=== PATIENT | male | born 1965 | race Caucasian/White ===

== ENCOUNTER → 2016-12-05 | Outpatient (CLI) | payer BC ==
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
== END | disposition home or self-care (01) ==
LOC: SLEEP 16:16
PROVIDERS: ATTEND Internal Medicine
DX: G47.33 Obstructive sleep apnea (adult) (pediatric) (principal); E66.9 Obesity, unspecified; I10 Essential (primary) hypertension; E11.9 Type 2 diabetes mellitus without complications; E78.5 Hyperlipidemia, unspecified; E77.9 Disorder of glycoprotein metabolism, unspecified; M54.2 Cervicalgia; Z79.84 Long term (current) use of oral hypoglycemic drugs; Z79.82 Long term (current) use of aspirin; Z79.899 Other long term (current) drug therapy

== ENCOUNTER → 2018-10-22 | Outpatient (CLI) | payer OTHER ==
--- NOTE | 2018-10-22 17:34 | PN ---
PROGRESS NOTE DATE OF SERVICE: 10/22/2018 53-year-old gentleman who has been followed in the Sleep Center for treatment of obstructive sleep apnea-hypopnea syndrome. The patient continued to use his CPAP equipment every night for the whole night without any problems related to mask fitting, pressure or humidification. Recently sometimes, he started to develop snoring. [place] Sleepiness Scale is normal 4. I checked his CPAP unit. CPAP pressure is 11 cm of water. Apnea-hypopnea index reading 2.7, which is normal. Leak is only 4 L/minute, which is normal. Usage is 100% of the nights more than 4 hours. Average usage 9.2 hours. MEDICATIONS: Metoprolol, Lotrel, metformin, glipizide, Lipitor, Flonase, Claritin, Cymbalta, vitamin D, Percocet, ibuprofen, aspirin, stool softener. PHYSICAL EXAM: Patient in no distress. BP 150/90 in the right arm, heart rate 88, respiration 16, height 17.5 inches, weight 259 pounds. Body mass index 35.9. Patient increased his weight around 10 pounds since previous visit. Temperature 98.3, oxygen saturation at room air 96%. Oropharynx extremely low position of soft palate. Abdomen slightly obese. Neck Supple, no JVD. Thyroid is not palpable. LUNGS Clear to percussion and to auscultation. Good air exchange. No wheezing or rhonchi. HEART S1, S2 regular. No murmurs, gallops, or rubs. ABDOMEN Soft and nontender. Bowel sounds are present. No organomegaly appreciated. EXTREMITIES No clubbing or cyanosis. MACHINE TESTER Awake, alert, and oriented X3. Cranial nerves 2 to 7 intact. There is no fasciculation or atrophy. noted. No focal deficits observed. IMPRESSION: 1. Severe obstructive sleep apnea-hypopnea syndrome with apnea-hypopnea index 31.7 on control with CPAP at 11 cm of water, but patient developed occasional snoring. The patient demonstrated 100% compliance with treatment benefitting from treatment. 2. Obesity, BMI 35.9. 3. Hypertension. 4. Diabetes mellitus. 5. Hyperlipidemia. 6. History of neck pain. PLAN: 1. I will increase pressure to 13 cm of water. 2. Losing weight. 3. Sleep hygiene with regular time in bed for at least 8 hours. 4. No driving if feeling sleepiness. 5. Prescription for all necessary CPAP supplies including mask, tube, filters. Thank you very much for allowing me to participate in management of your patient. Sincerely, Carloz Aquino MD, PhD, FAASM Diplomat of [employer] [employer] [place] [employer] Bacteriology Teacher of [facility] [place] MMODL / BENN: [id number] /
== END ==
LOC: SLEEP 16:38
PROVIDERS: ATTEND Internal Medicine
DX: G47.33 Obstructive sleep apnea (adult) (pediatric) (principal); E66.9 Obesity, unspecified; I10 Essential (primary) hypertension; E11.9 Type 2 diabetes mellitus without complications; E78.5 Hyperlipidemia, unspecified; M54.2 Cervicalgia; Z99.89 Dependence on other enabling machines and devices; Z79.899 Other long term (current) drug therapy; Z79.82 Long term (current) use of aspirin; Z79.84 Long term (current) use of oral hypoglycemic drugs; Z79.1 Long term (current) use of non-steroidal anti-inflammatories (NSAID)

== ENCOUNTER → 2020-11-01 | Outpatient (CLI) | payer BC ==
--- NOTE | 2020-11-02 00:31 | SFUN ---
SLEEP CENTER FOLLOW UP NOTE DATE OF SERVICE: 11/01/2020 55-year-old gentleman who has been followed in Sleep Center for treatment of obstructive sleep apnea-hypopnea syndrome. I have not seen patient for 2 years. He continued to use his equipment every night for the whole night. No snoring with the machine. [place] Sleepiness Scale today is 4. I checked CPAP unit. CPAP pressure is 15 cm of water. Usage is 30/30 nights for more than 4 hours with average usage 9.5 hours per night. Leak is 12 L/minute which is acceptable range. Apnea-hypopnea index of 0.5, which is absolutely perfect. MEDICATIONS: Trulicity 1.5-0.5 once a week, amlodipine, benazepril 10/20 mg 1 daily, metformin 500 mg twice a day, metoprolol 100 mg once a day, Atorvastatin 20 mg once a day. Duloxetine 60 mg once a day, 10 mg once a day, oxycodone, acetaminophen 20 tablets per month. Aspirin 81 mg once a day. Flonase 50 mcg twice a day. PHYSICAL EXAM: Patient in no distress, BP 163/95, HR 84, RR 15, height 5 feet 11 inches, weight 246, BMI 33.8 in 19.3, oxygen saturation at room air 96%. Oropharynx extremely low position of soft palate. Mallampati 4. NECK: Supple, no JVD. Thyroid is not palpable. LUNGS: Clear to percussion and to auscultation. Good air exchange. No wheezing or rhonchi. HEART: S1, S2 regular. No murmurs, gallops, or rubs. ABDOMEN: Soft and nontender. Bowel sounds are present. No organomegaly appreciated. EXTREMITIES: No clubbing or cyanosis. LOGISTICAL ENGINEER: Awake, alert, and oriented X3. Cranial nerves 2 to 7 intact. There is no fasciculation or atrophy. noted. No focal deficits observed. IMPRESSION: 1. Obstructive sleep apnea-hypopnea syndrome. Patient demonstrated good compliance with treatment benefitting from treatment. 2. Hypertension. 3. Diabetes mellitus. 4. Hyperlipidemia. 5. History of neck pain. PLAN: 1. Patient will continue to use PAP equipment every night for the whole night. 2. Sleep hygiene with regular time in bed for at least 7-1/2 to 8 hours. 3. Precautions related to driving. No driving if feeling sleepiness. 4. I will maintain all necessary prescription for PAP supplies including mask, tube, filters. 5. Watching weight. 6. No driving if feeling sleepiness. 7. Follow-up visit in 6 months or earlier if patient has any problems. Thank you very much for allowing me to participate in management of this patient. Sincerely, Carloz Aquino MD, PhD, FAASM Diplomat of [employer] Manufacturing Project Engineer of [facility] [place] MMODL / IJN: [id number] /
== END | disposition home or self-care (01) ==
LOC: SLEEP 13:35
PROVIDERS: ATTEND Internal Medicine
DX: G47.33 Obstructive sleep apnea (adult) (pediatric) (principal); I10 Essential (primary) hypertension; E11.9 Type 2 diabetes mellitus without complications; E78.5 Hyperlipidemia, unspecified; Z87.898 Personal history of other specified conditions; Z99.89 Dependence on other enabling machines and devices; Z79.84 Long term (current) use of oral hypoglycemic drugs; Z79.82 Long term (current) use of aspirin; Z79.891 Long term (current) use of opiate analgesic; Z79.51 Long term (current) use of inhaled steroids; Z79.899 Other long term (current) drug therapy

== ENCOUNTER 2021-01-19 21:48 | Inpatient (IN) | payer BC ==
--- NOTE | 2021-01-19 22:30 | ED ---
Arrhythmia/Palpitations HPI - General Chief Complaint: Arrhythmia/Palpitations Stated Complaint: Chest Pain Time Seen by Provider: 01/19/21 22:28 Source: patient Mode of arrival: wheelchair Limitations: no limitations - Related Data Allergies Allergy/AdvReac Type Severity Reaction Status Date / Time No Known Allergies Allergy Verified 01/19/21 21:52 Review of Systems ROS Statement: Those systems with pertinent positive or pertinent negative responses have been documented in the HPI. ROS Other: All systems not noted in ROS Statement are negative. Past Medical History Past Medical History: Diabetes Mellitus, Hyperlipidemia, Hypertension History of Any Multi-Drug Resistant Organisms: None Reported Past Surgical History: No Surgical Hx Reported Smoking Status: Never smoker Past Alcohol Use History: None Reported Past Drug Use History: None Reported General Exam Limitations: no limitations Course Vital Signs 01/19/21 01/19/21 21:49 22:14 Temperature 97.6 F Pulse Rate 94 137 H Pulse Rate [ 126 H Spar Finisher ] Respiratory 18 16 Rate Blood Pressure 133/71 143/109 O2 Sat by Pulse 99 99 Oximetry EKG Findings - EKG Comments: EKG Findings:: EKG shows A. fib with RVR 136 QRS 86 QTC 487 Disposition Referrals: Andrew Mayo DO [Primary Care Provider] - 1-2 days
[2021-01-19 22:37] LABS: Basophils # (A) 0.1 k/uL (0-0.2); Basophils % (A) 1 %; Eosinophils # (A) 0.3 k/uL (0-0.7); Eosinophils % (A) 4 %; HCT 43.4 % (39.0-53.0); HGB 14.7 gm/dL (13.0-17.5); Lymphocytes # (A) 2.8 k/uL (1.0-4.8); Lymphocytes % (A) 31 %; MCH 28.9 pg (25.0-35.0); MCHC 33.8 g/dL (31.0-37.0); MCV 85.5 fL (80.0-100.0); Mean Platelet Volume 7.2; Monocytes # (A) 0.6 k/uL (0-1.0); Monocytes % (A) 7 %; Neutrophils # (A) 5.1 k/uL (1.3-7.7); Neutrophils % (A) 57 %; Platelet Count 196 k/uL (150-450); RBC 5.07 m/uL (4.30-5.90); RDW 13.4 % (11.5-15.5); WBC 9.1 k/uL (3.8-10.6)
[2021-01-19 22:46] LABS: Partial Thromboplastin Time 23.6 sec (22.0-30.0); Prothrombin Time 10.6 sec (9.0-12.0)
[2021-01-19] MEDS ORDERED: DILTIAZEM DRIP BOLUS FROM BAG 1 MG SOLN IV ONE (22:55)
[2021-01-19] MEDS ORDERED: DILTIAZEM 125 MG in SODIUM CHLORIDE 0.9% 100 ML IV SCH (23:00)
[2021-01-19 23:23] LABS: ALT 30 U/L (4-49); AST 35 U/L (17-59); African American GFR (CKD) >90 (>60 ml/min/1.73 sqM); Albumin 4.6 g/dL (3.5-5.0); Alkaline Phosphatase 96 U/L (38-126); Anion Gap 11 mmol/L; Blood Urea Nitrogen 10 mg/dL (9-20); Calcium 9.3 mg/dL (8.4-10.2); Carbon Dioxide 28 mmol/L (22-30); Chloride 99 mmol/L (98-107); Glucose 150 mg/dL (74-99); Magnesium 2.2 mg/dL (1.6-2.3); Non-African American GFR(CKD) >90 (>60 ml/min/1.73 sqM); Potassium 3.8 mmol/L (3.5-5.1); Sodium 138 mmol/L (137-145); Total Bilirubin 0.5 mg/dL (0.2-1.3); Total Protein 7.3 g/dL (6.3-8.2)
[2021-01-20] MEDS ORDERED: HEPARIN SODIUM,PORCINE 5,000 UNIT/ML 1 ML VIAL IV ONE (00:43)
[2021-01-20] MEDS ORDERED: DILTIAZEM DRIP BOLUS FROM BAG 1 MG SOLN IV ONE (00:43)
[2021-01-20] MEDS ORDERED: NITROGLYCERIN SL TABS 0.4 MG TAB SUBLINGUAL PRN (00:43)
[2021-01-20] MEDS ORDERED: HEPARIN SODIUM,PORCINE 5,000 UNIT/ML 1 ML VIAL IV PRN (00:43)
[2021-01-20] MEDS ORDERED: ASPIRIN 81 MG PO STA (00:43)
[2021-01-20] MEDS ORDERED: HEPARIN SOD,PORK IN 0.45% NACL 25,000 UNIT in 0.45% NACL 1 250ML.BAG IV SCH (00:45)
[2021-01-20] MEDS ORDERED: SODIUM CHLORIDE 0.9% 1,000 ML IV SCH (00:45)
[2021-01-20 03:50] LABS: T4, Free (Free Thyroxine) 1.06 ng/dL (0.78-2.19)
[2021-01-20 06:29] LABS: Glucose,Whole Blood 150 mg/dL (75-99)
[2021-01-20 07:30] LABS: Mean Platelet Volume 6.9; Platelet Count 290 k/uL (150-450)
[2021-01-20] MEDS ORDERED: METOPROLOL SUCCINATE (ER) 100 MG TAB.ER.24H PO SCH ×2 (08:55→12:00)
[2021-01-20] MEDS ORDERED: amLODIPine 10 MG TAB PO SCH (09:00)
[2021-01-20] MEDS ORDERED: lisinopriL 20 MG TAB PO SCH (09:00)
[2021-01-20] MEDS ORDERED: METOPROLOL SUCCINATE (ER) 50 MG TAB.ER.24H PO SCH (09:00)
[2021-01-20] MEDS ORDERED: METOPROLOL TARTRATE 50 MG TAB PO SCH (09:00)
[2021-01-20 10:59] VITALS: TEMP 98.3
[2021-01-20 11:51] LABS: Glucose,Whole Blood 201 mg/dL (75-99)
[2021-01-20] MEDS ORDERED: DILTIAZEM CD 120 MG CAP.ER.24H PO SCH (12:00)
[2021-01-20] MEDS ORDERED: APIXABAN 5 MG TAB PO SCH (12:00)
[2021-01-20] MEDS ORDERED: oxyCODONE-APAP 7.5-325MG 1 EACH TAB PO PRN (13:17)
[2021-01-20 13:40] VITALS: BP 131/83; PULSE 77; RESP 16
--- NOTE | 2021-01-20 13:40 | P.CRDCN ---
History of Present Illness Consult date: 01/20/21 History of present illness: HISTORY OF PRESENT ILLNESS: This is a 55-year-old male with a past medical history significant for diabetes mellitus, hypertension, hyperlipidemia, and family history of coronary artery disease. Patient follows in the office with Dr. Kelly. We have been asked to see the patient in consultation for atrial fibrillation. Patient examined at the bedside. Patient states yesterday he was walking around the store with his kids when he began to feel very dizzy and sweaty. Patient presented to the emergency room for further evaluation. He reports feeling palpitations in the emergency room. EKG was completed revealing atrophic ablation with RVR. The patient was started on a IV Cardizem drip. He has since converted to sinus mechanism this morning. He denies chest pain or pressure. He denies shortness of breath. EKG reveals atrial fibrillation with RVR Laboratory data: WBC 9.1. Hemoglobin 14.7. Platelet count 196. Sodium 138. Potassium 3.8. BUN 10. Creatinine 0.65. Troponin negative 2. TSH 6.9. Free T4 1.06. Current home cardiac medications include metoprolol succinate 100 mg daily, Lipitor 20mg daily, Lotrel 10-40mg daily REVIEW OF SYSTEMS: At the time of my exam: CONSTITUTIONAL: Denies fever or chills. HEENT: Denies blurred vision, vision changes, or eye pain. Denies hemoptysis CARDIOVASCULAR: Denies chest pain. Denies orthopnea. Denies PND. Denies pal pitations RESPIRATORY: Denies shortness of breath. GASTROINTESTINAL: Denies abdominal pain. Denies nausea or vomiting. HEMATOLOGIC: Denies bleeding disorders. GENITOURINARY: Denies any blood in urine. SKIN: Denies pruitis. Denies rash. PHYSICAL EXAM: VITAL SIGNS: Reviewed. GENERAL: Well-developed in no acute distress. HEENT: Head is normocephalic. Pupils are equal, round. Sclerae anicteric. Mucous membranes of the mouth are moist. Neck supple. No JVD or thyromegaly LUNGS: Respirations even and unlabored. Lungs essentially clear to auscultation bilaterally. HEART: Regular rate and rhythm. S1 and S2 heard. ABDOMEN: Soft. Nondistended. Nontender. EXTREMITIES: Normal range of motion. No clubbing or cyanosis. Peripheral pulses intact. No lower extremity edema NEUROLOGIC: Awake and alert. Oriented x 3. ASSESSMENT: New onset atrial fibrillation with RVR, since converted to sinus mechanism Hypertension Hyperlipidemia Diabetes mellitus Family history of coronary artery disease Abnormal TSH with normal free T4 PLAN: Obtain 2-D echo to assess cardiac structure and function Discontinue IV Cardizem Continue metoprolol 100 mg daily Begin Cardizem CD 120 mg daily. Discontinue Norvasc Continue lisinopril Discontinue IV heparin. Begin Eliquis 5 mg twice a day Further recommendations pending patient's course Nurse practitioner note has been reviewed by physician. Signing provider agrees with the documented findings, assessment, and plan of care. Past Medical History Past Medical History: Diabetes Mellitus, Hyperlipidemia, Hypertension Additional Past Medical History / Comment(s): chronic neck and back pain History of Any Multi-Drug Resistant Organisms: None Reported Past Surgical History: No Surgical Hx Reported Past Anesthesia/Blood Transfusion Reactions: No Reported Reaction Past Psychological History: No Psychological Hx Reported Smoking Status: Never smoker Past Alcohol Use History: None Reported Past Drug Use History: None Reported - Past Family History Father Family Medical History: Diabetes Mellitus, Hyperlipidemia, Hypertension Mother Family Medical History: No Reported History Medications and Allergies Home Medications Medication Instructions Recorded Confirmed Type Apixaban [Eliquis] 5 mg PO BID #60 tab 01/20/21 Rx Atorvastatin Calcium [Lipitor] 20 mg PO HS 01/20/21 01/20/21 History Cholecalciferol (Vitamin D3) 125 mcg PO HS 01/20/21 01/20/21 History [Vitamin D3 (5000 Iu)] DULoxetine HCL [Cymbalta] 60 mg PO HS 01/20/21 01/20/21 History Diltiazem Cd [Cardizem CD] 120 mg PO DAILY #90 cap.er.24h 01/20/21 Rx Dulaglutide [Trulicity] 1.5 mg SQ SA 01/20/21 01/20/21 History Fluticasone Nasal [place] [Flonase 2 spr EA NOSTRIL DAILY 01/20/21 01/20/21 History Nasal [place]] Metoprolol Succinate [Toprol XL] 100 mg PO DAILY@1200 01/20/21 01/20/21 History lisinopriL 40 mg PO DAILY #90 tab 01/20/21 Rx metFORMIN HCL [Glucophage] 1,000 mg PO BID 01/20/21 01/20/21 History oxyCODONE-APAP 7.5-325MG [Percocet 1 tab PO DAILY PRN 01/20/21 01/20/21 History 7.5-325 mg] Allergies Allergy/AdvReac Type Severity Reaction Status Date / Time No Known Allergies Allergy Verified 01/20/21 07:41 Physical Exam Vitals: Vital Signs Temp Pulse Pulse Resp BP BP Pulse Ox 01/20/21 08:00 98.3 F 72 18 127/64 97 01/20/21 07:27 95 01/20/21 03:00 97.8 F 73 18 135/91 96 01/20/21 02:52 120 H 16 113/97 95 01/20/21 02:01 121 H 16 102/89 97 01/19/21 22:14 137 H 126 H 16 143/109 99 01/19/21 21:49 97.6 F 94 18 133/71 99 Intake and Output 01/19/21 01/20/21 01/20/21 22:59 06:59 14:59 Intake Total 84.061 Balance 84.061 Intake: Intake, IV Titration 84.061 Amount Heparin Sod,Pork in 0.45% 84.061 NaCl 25,000 unit In 0.45 % NaCl 1 250ml.bag @ 8. 952 UNITS/KG/HR 9.948 mls /hr IV .Q24H [facility] Rx#: [id number] Other: Weight 111.13 kg 108.5 kg Results 01/20/21 07:10 01/19/21 23:00 Cardiac Enzymes 01/19/21 01/19/21 01/20/21 Range/Units 22:29 23:00 01:13 AST 35 (17-59) U/L Troponin I <0.012 <0.012 (0.000-0.034) ng/mL 01/20/21 Range/Units 07:10 AST (17-59) U/L Troponin I <0.012 (0.000-0.034) ng/mL Coagulation 01/19/21 01/20/21 01/20/21 Range/Units 22:29 01:13 07:10 PT 10.6 (9.0-12.0) sec APTT 23.6 23.7 34.3 H (22.0-30.0) sec CBC 01/19/21 01/20/21 Range/Units 22:29 07:10 WBC 9.1 (3.8-10.6) k/uL RBC 5.07 (4.30-5.90) m/uL Hgb 14.7 (13.0-17.5) gm/dL Hct 43.4 (39.0-53.0) % Plt Count 196 290 (150-450) k/uL Comprehensive Metabolic Panel 01/19/21 Range/Units 23:00 Sodium 138 (137-145) mmol/L Potassium 3.8 (3.5-5.1) mmol/L Chloride 99 (98-107) mmol/L Carbon Dioxide 28 (22-30) mmol/L BUN 10 (9-20) mg/dL Creatinine 0.65 L (0.66-1.25) mg/dL Glucose 150 H (74-99) mg/dL Calcium 9.3 (8.4-10.2) mg/dL AST 35 (17-59) U/L ALT 30 (4-49) U/L Alkaline Phosphatase 96 (38-126) U/L Total Protein 7.3 (6.3-8.2) g/dL Albumin 4.6 (3.5-5.0) g/dL Current Medications Generic Name Dose Route Start Last Admin Trade Name Freq PRN Reason Stop Dose Admin Apixaban 5 mg 01/20/21 12:00 01/20/21 12:55 Apixaban 5 Mg Tab PO 5 mg BID [facility]ORGE Administration Atorvastatin Calcium 20 mg 01/20/21 21:00 Atorvastatin 20 Mg Tab PO HS [facility]ORGE Cholecalciferol 125 mcg 01/20/21 21:00 Cholecalciferol 25 Mcg (1000 Iu) Tablet PO HS GEORGE Diltiazem HCl 120 mg 01/20/21 12:00 01/20/21 12:55 Diltiazem Cd 120 Mg Cap.Er.24h PO 120 mg DAILY [facility]OR[facility] Administration Duloxetine HCl 60 mg 01/20/21 21:00 Duloxetine Hcl 60 Mg Capsule.Dr PO HS GEORGE Sodium Chloride 1,000 mls @ 100 mls/hr 01/20/21 00:45 01/20/21 01:53 Saline 0.9% IV Not Given .Q10H [facility] Lisinopril 40 mg 01/20/21 09:00 01/20/21 09:36 Lisinopril 20 Mg Tab PO 40 mg DAILY [facility] Administration Metformin HCl 1,000 mg 01/20/21 21:00 Metformin 500 Mg Tab PO BID [facility] Metoprolol Succinate 100 mg 01/20/21 12:00 01/20/21 12:14 Metoprolol Succinate (Er) 100 Mg Tab.Er.24h PO Not Given DAILY@1200 [facility] Nitroglycerin 0.4 mg 01/20/21 00:43 Nitroglycerin Sl Tabs 0.4 Mg Tab SUBLINGUAL Q5M PRN Chest Pain Oxycodone/Acetaminophen 1 each 01/20/21 13:17 Oxycodone-Apap 7.5-325mg 1 Each Tab PO DAILY PRN Pain Intake and Output 01/19/21 01/20/21 01/20/21 22:59 06:59 14:59 Intake Total 84.061 Balance 84.061 Intake: Intake, IV Titration 84.061 Amount Heparin Sod,Pork in 0.45% 84.061 NaCl 25,000 unit In 0.45 % NaCl 1 250ml.bag @ 8. 952 UNITS/KG/HR 9.948 mls /hr IV .Q24H [facility] Rx#: [id number] Other: Weight 111.13 kg 108.5 kg 01/20/21 07:10 01/19/21 23:00
[2021-01-20] MEDS ORDERED: DULoxetine HCL 60 MG CAPSULE.DR PO SCH (21:00)
[2021-01-20] MEDS ORDERED: ATORVASTATIN 20 MG TAB PO SCH (21:00)
[2021-01-20] MEDS ORDERED: metFORMIN 500 MG TAB PO SCH (21:00)
[2021-01-20] MEDS ORDERED: CHOLECALCIFEROL 25 MCG (1000 IU) TABLET PO SCH (21:00)
--- NOTE | 2021-01-20 21:32 | P.HPIM ---
History of Present Illness H&P Date: 01/20/21 Chief Complaint: Heart fluttering History of presenting complaint: This is a pleasant 55 year old patient of Dr. Mayo. Chronic stable medical conditions include diabetes, hypertension, hyperlipidemia, chronic neck and back pain. Patient presented with heart fluttering since yesterday. Some associated dizziness lightheadedness shortness of breath. Found to be in A. fib with rapid ventricular rate. Patient is placed on IV heparin and IV Cardizem in the ER. Later today patient reverted back to sinus rhythm. Patient has chronic neck and back pain. Patient does take Cymbalta with chronic pain and anxiety. Review of systems: GEN.: None EYES: None HEENT: None NECK: None RESPIRATORY: As above CARDIOVASCULAR: [As above GASTROINTESTINAL: None GENITOURINARY: None MUSCULOSKELETAL: None LYMPHATICS: None HEMATOLOGICAL: None PSYCHIATRY: Anxiety NEUROLOGICAL: None Past medical history to include: Diabetes, hypertension, hyperlipidemia, chronic neck and back pain, anxiety Social history: . Does not smoke or drink alcohol. 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 EYES: Pupils equal. Conjunctiva normal. HEENT: External appearance of nose and ears normal, oral cavity grossly normal. NECK: JVD not raised; masses not palpable. HEART: First and second heart sounds are normal; no edema. LUNGS: Respiratory rate normal; clear to auscultation. ABDOMEN: Soft, nontender, liver spleen not palpable, no masses palpable. PSYCH: Alert and oriented x3; mood and affect normal. NEUROLOGICAL: Cranial nerves grossly intact; no facial asymmetry, power and sensation grossly intact. LYMPHATICS: No lymph nodes palpable in the axilla and neck INVESTIGATIONS, reviewed in the clinical context: WBC 10.1 hemoglobin 14.7 platelets 196 potassium 3.8 creatinine 0.65 Troponin I 2 both negative TSH 6.9 and free T4 1 0.06 Coronavirus [PCR]-not detected EKG tracing personally reviewed by me-atrial fibrillation rate of 136 Assessment and plan: -New onset of paroxysmal atrial fibrillation with rapid ventricular rate. Was put on IV Cardizem and IV heparin the ER. Converted to sinus rhythm this morning. -Diabetes mellitus type 2. Continue with Glucophage chronicity. Follow Accu- Cheks -Essential hypertension on beta bhupinder and lisinopril now Cardizem CD -Hypercholesterolemia, on Lipitor -Chronic back and neck pain from arthralgia. On Cymbalta and Percocet -Anxiety not otherwise specified on Cymbalta Patient is placed in telemetry. Cardiology he was consulted. Care was discussed with the patient Past Medical History Past Medical History: Diabetes Mellitus, Hyperlipidemia, Hypertension Additional Past Medical History / Comment(s): chronic neck and back pain History of Any Multi-Drug Resistant Organisms: None Reported Past Surgical History: No Surgical Hx Reported Past Anesthesia/Blood Transfusion Reactions: No Reported Reaction Past Psychological History: No Psychological Hx Reported Smoking Status: Never smoker Past Alcohol Use History: None Reported Past Drug Use History: None Reported - Past Family History Father Family Medical History: Diabetes Mellitus, Hyperlipidemia, Hypertension Mother Family Medical History: No Reported History Medications and Allergies Home Medications Medication Instructions Recorded Confirmed Type Apixaban [Eliquis] 5 mg PO BID #60 tab 01/20/21 Rx Atorvastatin Calcium [Lipitor] 20 mg PO HS 01/20/21 01/20/21 History Cholecalciferol (Vitamin D3) 125 mcg PO HS 01/20/21 01/20/21 History [Vitamin D3 (5000 Iu)] DULoxetine HCL [Cymbalta] 60 mg PO HS 01/20/21 01/20/21 History Diltiazem Cd [Cardizem CD] 120 mg PO DAILY #90 cap.er.24h 01/20/21 Rx Dulaglutide [Trulicity] 1.5 mg SQ SA 01/20/21 01/20/21 History Fluticasone Nasal [place] [Flonase 2 spr EA NOSTRIL DAILY 01/20/21 01/20/21 History Nasal [place]] Metoprolol Succinate [Toprol XL] 100 mg PO DAILY@1200 01/20/21 01/20/21 History lisinopriL 40 mg PO DAILY #90 tab 01/20/21 Rx metFORMIN HCL [Glucophage] 1,000 mg PO BID 01/20/21 01/20/21 History oxyCODONE-APAP 7.5-325MG [Percocet 1 tab PO DAILY PRN 01/20/21 01/20/21 History 7.5-325 mg] Allergies Allergy/AdvReac Type Severity Reaction Status Date / Time No Known Allergies Allergy Verified 01/20/21 07:41 Physical Exam Vitals: Vital Signs Temp Pulse Pulse Resp BP BP Pulse Ox 01/20/21 14:00 77 01/20/21 12:00 77 16 131/83 94 L 01/20/21 08:00 98.3 F 72 18 127/64 97 01/20/21 07:27 95 01/20/21 03:00 97.8 F 73 18 135/91 96 01/20/21 02:52 120 H 16 113/97 95 01/20/21 02:01 121 H 16 102/89 97 01/19/21 22:14 137 H 126 H 16 143/109 99 01/19/21 21:49 97.6 F 94 18 133/71 99 Intake and Output 01/20/21 01/20/21 01/20/21 06:59 14:59 22:59 Intake Total 564.061 Balance 564.061 Intake: Intake, IV Titration 84.061 Amount Heparin Sod,Pork in 0.45% 84.061 NaCl 25,000 unit In 0.45 % NaCl 1 250ml.bag @ 8. 952 UNITS/KG/HR 9.948 mls /hr IV .Q24H [facility] Rx#: [id number] Oral 480 Other: # Voids 2 Weight 108.5 kg Results CBC & Chem 7: 01/20/21 07:10 01/19/21 23:00 Labs: Abnormal Lab Results - Last 24 Hours (Table) 01/19/21 01/20/21 01/20/21 Range/Units 23:00 06:24 07:10 APTT 34.3 H (22.0-30.0) sec Creatinine 0.65 L (0.66-1.25) mg/dL Glucose 150 H (74-99) mg/dL POC Glucose (mg/dL) 150 H (75-99) mg/dL TSH 6.900 H (0.465-4.680) mIU/L 01/20/21 Range/Units 11:50 APTT (22.0-30.0) sec Creatinine (0.66-1.25) mg/dL Glucose (74-99) mg/dL POC Glucose (mg/dL) 201 H (75-99) mg/dL TSH (0.465-4.680) mIU/L Thrombosis Risk Factor Assmnt - Choose All That Apply Any of the Below Risk Factors Present?: Yes Each Factor Represents 1 point: Age 41-60 years, Obesity (BMI >25) Other Risk Factors: No Other congenital or acquired thrombophilia - If yes, enter type in comment: No Thrombosis Risk Factor Assessment Total Risk Factor Score: 2 Thrombosis Risk Factor Assessment Level: Low Risk
--- NOTE | 2021-01-20 21:35 | P.DS ---
Providers Date of admission: 01/20/21 00:44 Expected date of discharge: 01/20/21 Attending physician: Baldemar Anderson Consults: 01/20/21 00:44 Consult Physician Urgent Consulting Provider: Caio Mccord Consult Reason/Comments: afib Do you want consulting provider notified?: Yes Primary care physician: Andrew [facility] Course: Chief Complaint: Heart fluttering History of presenting complaint: This is a pleasant 55 year old patient of Dr. Mayo. Chronic stable medical conditions include diabetes, hypertension, hyperlipidemia, chronic neck and back pain. Patient presented with heart fluttering since yesterday. Some associated dizziness lightheadedness shortness of breath. Found to be in A. fib with rapid ventricular rate. Patient is placed on IV heparin and IV Cardizem in the ER. Later today patient reverted back to sinus rhythm. Patient has chronic neck and back pain. Patient does take Cymbalta with chronic pain and anxiety. Patient is put on IV heparin and IV Cardizem. Reverted to sinus rhythm. Today-patient placed on eliquis, Cardizem CD. Already on Toprol-XL. Care was discussed with the patient. Cleared by cardiology Consultation: Dr. ROSALVA Fernandez from cardiology Past medical history to include: Diabetes, hypertension, hyperlipidemia, chronic neck and back pain, anxiety Social history: . Does not smoke or drink alcohol. 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 EYES: Pupils equal. Conjunctiva normal. HEENT: External appearance of nose and ears normal, oral cavity grossly normal. NECK: JVD not raised; masses not palpable. HEART: First and second heart sounds are normal; no edema. LUNGS: Respiratory rate normal; clear to auscultation. ABDOMEN: Soft, nontender, liver spleen not palpable, no masses palpable. PSYCH: Alert and oriented x3; mood and affect normal. INVESTIGATIONS, reviewed in the clinical context: WBC 10.1 hemoglobin 14.7 platelets 196 potassium 3.8 creatinine 0.65 Troponin I 2 both negative TSH 6.9 and free T4 1 0.06 Coronavirus [PCR]-not detected EKG tracing personally reviewed by me-atrial fibrillation rate of 136 Assessment and plan: -New onset of paroxysmal atrial fibrillation with rapid ventricular rate. Was put on IV Cardizem and IV heparin the ER. Converted to sinus rhythm this morning. Now on Cardizem CD and Toprol-XL. Eliquis -Diabetes mellitus type 2. Continue with Glucophage chronicity. Follow Accu-Cheks -Essential hypertension on beta bhupinder and lisinopril now Cardizem CD -Hypercholesterolemia, on Lipitor -Chronic back and neck pain from arthralgia. On Cymbalta and Percocet -Anxiety not otherwise specified on Cymbalta Disposition: Home Plan - Discharge Summary Discharge Rx Participant: No New Discharge Prescriptions: New Apixaban [Eliquis] 5 mg PO BID #60 tab lisinopriL 40 mg PO DAILY #90 tab Diltiazem Cd [Cardizem CD] 120 mg PO DAILY #90 cap.er.24h Continue Dulaglutide [Trulicity] 1.5 mg SQ SA Cholecalciferol (Vitamin D3) [Vitamin D3 (5000 Iu)] 125 mcg PO HS Atorvastatin Calcium [Lipitor] 20 mg PO HS metFORMIN HCL [Glucophage] 1,000 mg PO BID Metoprolol Succinate [Toprol XL] 100 mg PO DAILY@1200 Fluticasone Nasal [place] [Flonase Nasal [place]] 2 spr EA NOSTRIL DAILY DULoxetine HCL [Cymbalta] 60 mg PO HS oxyCODONE-APAP 7.5-325MG [Percocet 7.5-325 mg] 1 tab PO DAILY PRN PRN Reason: Pain Discontinued amLODIPine BESYLATE/BENAZEPRIL [Lotrel 10-40 MG] 1 cap PO DAILY Aspirin EC [Ecotrin Low Dose] 81 mg PO HS Loratadine 10 mg PO HS Discharge Medication List Apixaban [Eliquis] 5 mg PO BID #60 tab 01/20/21 [Rx] Atorvastatin Calcium [Lipitor] 20 mg PO HS 01/20/21 [History] Cholecalciferol (Vitamin D3) [Vitamin D3 (5000 Iu)] 125 mcg PO HS 01/20/21 [History] DULoxetine HCL [Cymbalta] 60 mg PO HS 01/20/21 [History] Diltiazem Cd [Cardizem CD] 120 mg PO DAILY #90 cap.er.24h 01/20/21 [Rx] Dulaglutide [Trulicity] 1.5 mg SQ SA 01/20/21 [History] Fluticasone Nasal [place] [Flonase Nasal [place]] 2 spr EA NOSTRIL DAILY 01/20/21 [History] Metoprolol Succinate [Toprol XL] 100 mg PO DAILY@1200 01/20/21 [History] lisinopriL 40 mg PO DAILY #90 tab 01/20/21 [Rx] metFORMIN HCL [Glucophage] 1,000 mg PO BID 01/20/21 [History] oxyCODONE-APAP 7.5-325MG [Percocet 7.5-325 mg] 1 tab PO DAILY PRN 01/20/21 [History] Follow up Appointment(s)/Referral(s): cardiology, [Other] - 1 Week (Please make a follow-up with your long winder tender.) Andrew Mayo DO [Primary Care Provider] - 1-2 days (Please call office to make a follow-up appointment) Discharge Disposition: HOME SELF-CARE
--- NOTE | 2021-01-21 08:34 | ECHOF ---
Referral Reason:new onset afib, lv function MEASUREMENTS -------- HEIGHT: 182.9 cm WEIGHT: 108.4 kg BP: RVIDd: 2.6 cm (< 3.3) IVSd: 1.0 cm (0.6 - 1.1) LVIDd: 4.2 cm (3.9 - 5.3) LVPWd: 1.4 cm (0.6 - 1.1) IVSs: 1.5 cm LVIDs: 3.2 cm LVPWs: 1.7 cm LAESV Index (A-L): 32.98 ml/m Ao Diam: 3.0 cm (2.0 - 3.7) AV Cusp: 2.0 cm (1.5 - 2.6) MV EXCURSION: 19.436 mm (> 18.000) MV EF SLOPE: 67 mm/s (70 - 150) EPSS: 0.5 cm MV E David: 0.60 m/s MV DecT: 219 ms MV A David: 0.83 m/s MV E/A Ratio: 0.72 RAP: 5.00 mmHg RVSP: 19.13 mmHg FINDINGS -------- Sinus rhythm. This was a technically good study. LV size, wall thickness and systolic function are normal, with an EF greater than 55%. The left quin tricular size is normal. The right ventricle is normal in size. LA is midly dilated 29-33ml/m2. The right atrial size is normal. The aortic valve is trileaflet, and appears structurally normal. No aortic stenosis or regurgitation. Mild mitral regurgitation is present. Mild tricuspid regurgitation present. Right ventricular systolic pressure is normal at < 35 mmHg. Trace/mild (physiologic) pulmonic regurgitation. The aortic root size is normal. Echo free space indicative of a pericardial fat pad. CONCLUSIONS -------- 1. LV size, wall thickness and systolic function are normal, with an EF greater than 55%. 2. The left ventricular size is normal. 3. The right ventricle is normal in size. 4. LA is midly dilated 29-33ml/m2. 5. The right atrial size is normal. 6. The aortic valve is trileaflet, and appears structurally normal. No aortic stenosis or regurgitati on. 7. Mild mitral regurgitation is present. 8. Mild tricuspid regurgitation present. 9. Trace/mild (physiologic) pulmonic regurgitation. 10. The aortic root size is normal. 11. Echo free space indicative of a pericardial fat pad. TITLE PROCESSOR: Ambar Puente RDCS
[2021-01-21] MEDS ORDERED: ASPIRIN 325 MG TAB PO SCH (09:00)
[2021-01-21] MEDS ORDERED: ASPIRIN 81 MG PO SCH (09:00)
== END 2021-01-20 17:48 | disposition home or self-care (01) | DRG 310 ==
LOC: EC 21:48 → 3SCARD 01-20 00:44
PROVIDERS: ADMIT Hospitalist; ATTEND Hospitalist
DX: I48.0 Paroxysmal atrial fibrillation (principal); Z79.01 Long term (current) use of anticoagulants; E11.9 Type 2 diabetes mellitus without complications; E78.00 Pure hypercholesterolemia, unspecified; F41.9 Anxiety disorder, unspecified; G89.29 Other chronic pain; I10 Essential (primary) hypertension; Z79.84 Long term (current) use of oral hypoglycemic drugs; Z79.899 Other long term (current) drug therapy; Z82.49 Family history of ischemic heart disease and other diseases of the circulatory system; Z83.3 Family history of diabetes mellitus; Z20.822 Contact with and (suspected) exposure to COVID-19; E78.5 Hyperlipidemia, unspecified
CPT/HCPCS: 36415; 80053; 83735; 84439; 84443; 84484; 85025; 85049; 85610; 85730; 87635; 93005; 93306; 94760; 96374; 96375; 96376; 99285

== ENCOUNTER → 2021-05-17 | Outpatient (CLI) | payer BC ==
--- NOTE | 2021-05-18 08:55 | SFUN ---
SLEEP CENTER FOLLOW UP NOTE DATE OF SERVICE: 05/17/2021. 56-year-old gentleman has been followed in Sleep Center for treatment of obstructive sleep apnea-hypopnea syndrome. Patient continued to use CPAP equipment every night for the whole night. He does not have any complaints from the mask fitting, pressure and humidification. Recently the patient had episode of atrial fibrillation which started in the evening hours, but it was not during the sleep time. In several hours, atrial fibrillation was converted to normal sinus rhythm. [place] Sleepiness Scale today is 5. I checked patient's CPAP unit, pressure is 13 cm of water. Usage is 30/30 nights for more than 4 hours with average usage is 10.4 hours per night. Leak is 5 L/minute, which is totally normal. Apnea-hypopnea index is only 1.1, which is perfect. MEDICATIONS: Metformin 500 mg twice a day. Duloxetine 60 mg once a day, amlodipine 10 mg once a day. Lisinopril 40 mg once a day. Eliquis 5 mg once a day. Metoprolol 100 mg once a day. Fluticasone spray to the nose. PHYSICAL EXAMINATION: GENERAL: Patient in no distress. VITAL SIGNS: BP 162/89, HR 69, RR 15, height 5 feet 11 inches, weight 241, body mass index 33.6, temperature 96.2, oxygen saturation at room air 95%. HEENT: PERRLA, EOMI. Oropharynx extremely low position of soft palate. Mallampati 4. NECK: Supple, no JVD. Thyroid is not palpable. LUNGS: Clear to percussion and to auscultation. Good air exchange. No wheezing or rhonchi. HEART: S1, S2 regular. No murmurs, gallops, or rubs. ABDOMEN: Obese. Soft and nontender. Bowel sounds are present. No organomegaly appreciated. EXTREMITIES: No clubbing or cyanosis. CUSTOMER RETENTION REPRESENTATIVE: Awake, alert, and oriented X3. Cranial nerves 2 to 7 intact. There is no fasciculation or atrophy. noted. No focal deficits observed. IMPRESSION: 1. Obstructive sleep apnea-hypopnea syndrome. Patient demonstrated 100% compliance with treatment benefitting from treatment. 2. Recent episodes of atrial fibrillation. Converted to normal sinus rhythm. 3. Hypertension. 4. Diabetes mellitus. 5. Hyperlipidemia. 6. History of neck pain. PLAN: 1. Patient will continue to use PAP equipment every night for the whole night. 2. Sleep hygiene with regular time in bed for at least 7-1/2 to 8 hours. 3. Precautions related to driving. No driving if feeling sleepiness. 4. I will maintain all necessary prescription for PAP supplies including mask, tube, filters. 5. Watching weight. 6. Follow-up visit in 6 months or earlier if patient has any problems. Time spent with patient in documentation 30 minutes. Thank you very much for allowing me to participate in management of your patient. Sincerely, Carloz Aquino MD, PhD, FAASM Diplomat of [place] [employer] Sleep Medicine Board of [place] [employer] Salesperson Meats of [facility] [place] MMODL / IJN: [id number] /
== END ==
LOC: SLEEP 16:33
PROVIDERS: ATTEND Internal Medicine
DX: G47.33 Obstructive sleep apnea (adult) (pediatric) (principal); I48.91 Unspecified atrial fibrillation; I10 Essential (primary) hypertension; E11.9 Type 2 diabetes mellitus without complications; E78.5 Hyperlipidemia, unspecified; Z87.39 Personal history of other diseases of the musculoskeletal system and connective tissue; Z79.01 Long term (current) use of anticoagulants; Z79.84 Long term (current) use of oral hypoglycemic drugs; Z79.899 Other long term (current) drug therapy

== ENCOUNTER → 2021-11-15 | Outpatient (CLI) | payer BC ==
--- NOTE | 2021-11-15 23:22 | SFUN ---
SLEEP CENTER FOLLOW UP NOTE DATE OF SERVICE: 11/15/2021 This 56-year-old gentleman has been followed in Sleep Center for treatment of obstructive sleep apnea-hypopnea syndrome. Patient continues to use his CPAP equipment every night for the whole night and is getting his CPAP supplies on time. [place] Sleepiness Scale today is 4, which is normal. I checked his CPAP unit. Pressure is 13 cm of water. Usage is 30/30 nights for more than 4 hours. Average usage is 10.2 hours per night. Leak is 10 L/minute, which is in normal range. Apnea-hypopnea index is 1.2, which is perfect. MEDICATIONS: 1. Metformin 500 mg 2 tablets twice a day. 2. Jardiance 25 mg once a day. 3. Pioglitazone mg once a day. 4. Eliquis 5 mg twice a day. 5. Lisinopril 40 mg once a day. 6. Amlodipine 10 mg once a day. 7. Metoprolol 100 mg once a day. 8. Atorvastatin 20 mg once a day. 9. Duloxetine 60 mg once a day. 10.Fluticasone 1-2 sprays a day. 11.Famotidine 20 mg once a day. PHYSICAL EXAMINATION: GENERAL: Pleasant patient in no distress. VITAL SIGNS: BP 140/80, HR 63, RR 15, height 5 feet 11-1/2 inches, weight 243.2 pounds, body mass index 33.4, temperature 97.1, oxygen saturation at room air 96%. HEENT: PERRLA, EOMI, evaluation of oropharynx showed tongue protrudes midline. Extremely low position of soft palate; Mallampati IV. NECK: Supple, no JVD. Thyroid is not palpable. LUNGS: Clear to percussion and to auscultation. Good air exchange. No wheezing or rhonchi. HEART: S1, S2 regular. No murmurs, gallops, or rubs. ABDOMEN: Slightly obese. EXTREMITIES: No clubbing or cyanosis. DETECTIVE CHIEF: Awake, alert, and oriented X3. Cranial nerves 2 to 7 intact. There is no fasciculation or atrophy. noted. No focal deficits observed. IMPRESSION: 1. Obstructive sleep apnea-hypopnea syndrome. The patient demonstrated great compliance with treatment. Normal aspiration on CPAP. 2. History of episodes of atrial fibrillation. No recent episodes since I saw patient last time, about 6 months ago. 3. Hypertension. 4. Diabetes mellitus. 5. Hyperlipidemia. 6. History of neck pain. PLAN: 1. Patient will continue to use PAP equipment every night for the whole night. 2. Sleep hygiene with regular time in bed for at least 7-1/2 to 8 hours. 3. Precautions related to driving. No driving if feeling sleepiness. 4. I will maintain all necessary prescription for PAP supplies including mask, tube, filters. 5. Watching weight. 6. Follow-up visit in 6 months or earlier if patient has any problems. Thank you very much for allowing me to participate in the management of your patient. Sincerely, Carloz Aquino MD, PhD, FAASM Diplomat of [place] [employer] Sleep Medicine Board of [place] [employer] Granulator Tender of [facility] [place] MMMONI / DARWIN: [id number] /
== END ==
LOC: SLEEP 16:05
PROVIDERS: ATTEND Internal Medicine
DX: G47.33 Obstructive sleep apnea (adult) (pediatric) (principal); I10 Essential (primary) hypertension; E11.9 Type 2 diabetes mellitus without complications; E78.5 Hyperlipidemia, unspecified; Z99.89 Dependence on other enabling machines and devices; Z87.39 Personal history of other diseases of the musculoskeletal system and connective tissue; Z79.84 Long term (current) use of oral hypoglycemic drugs; Z79.899 Other long term (current) drug therapy

== ENCOUNTER → 2022-05-23 | Outpatient (CLI) | payer BC ==
--- NOTE | 2022-05-23 15:29 | P.PN ---
Subjective DATE: 05/23/2022 FOLLOW UP VISIT. Patient with obstructive sleep apnea hypopnea syndrome return to sleep center for follow-up visit. Information from previous visit have been reviewed. Patient is using PAP equipment every night for the whole night, getting PAP supplies in time. The patient does not have significant problems with the mask, PAP unit and humidification. [place] sleepiness scale is 4. I checked PAP unit. PAP unit pressure 13 cm H2O. Usage is 100 % for more then 4 hours, average 9.4 hours per night. Leak is 8 l/m, which is in acceptable range. Apnea Hypopnea Index is 0.8, which is normal. MEDICATIONS:1. Metformin 500 mg twice a day 2. Glimepiride 1 mg once a day 3. Jardiance 20 mg once a day 4. Eliquis 5 mg twice a day 5. Metoprolol 100 mg once a day 6. Lisinopril 40 mg once a day 7. []amlodipine 10 mg once a day 8. Atorvastatin 20 mg once a day During physical exam: GENERAL: A pleasant patient without any distress. VITAL SIGNS: BP 107/67, HR 69, RR 16 , weight 236.8, height 5. 11 inches, body mass index 32.1, temperature 95.4, oxygen saturation at room air 95 % . HEENT: PERRLA, EOMI.low position of soft palate, Mallapati4 . NECK: Supple. No JVD. LUNGS: Clear to percussion and to auscultation. Good air exchange. No wheezing or rhonchi. HEART: S1, S2 regular. ABDOMEN: Soft and nontender. EXTREMITIES: No clubbing or cyanosis. CORDUROY CUTTING SUPERVISOR: Awake, alert, and oriented x3. No focal deficit. Impressions: 1. Obstructive sleep apnea-hypopnea syndrome. Patient demonstrated great compliance with treatment, benefiting from treatment. 2. History of lateral fibrillation. 3. Hypertension. 4. Diabetes mellitus. 5. Hyperlipidemia. 6. History of neck problems. Plan: 1. Continue using PAP equipment every night for the whole night. 2. To change air filter at least 1-2 times per month. 3. PAP unit should stay lower then position of the head. 4. Advised patient to remove all remaining water from humidifier canister daily and make it dry after each usage. Refill canister with fresh distilled water before each usage. 5. Sleep hygiene with regular time in bed for at least 8 hours. 6. Precautions related to driving. No driving if feel any sleepiness. 7. I will maintain prescription for PAP supplies including mask, tube, filters. 8. Follow up visit in 6 months or earlier if patient has any problems. 9. Watching weight. Thank you very much for allowing me to participate in the management of your patient. Carloz Aquino MD, PhD, FAASM. Diplomat of [place] [employer] Medicine, Sleep Medicine Board by [place] [employer] Data Software Engineer of [facility] [place]
== END ==
LOC: SLEEP 15:05
PROVIDERS: ATTEND Internal Medicine
DX: G47.33 Obstructive sleep apnea (adult) (pediatric) (principal); I48.91 Unspecified atrial fibrillation; I10 Essential (primary) hypertension; E11.9 Type 2 diabetes mellitus without complications; E78.5 Hyperlipidemia, unspecified; Z87.39 Personal history of other diseases of the musculoskeletal system and connective tissue; Z99.89 Dependence on other enabling machines and devices; Z79.84 Long term (current) use of oral hypoglycemic drugs; Z79.01 Long term (current) use of anticoagulants

== ENCOUNTER 2023-06-17 07:02 | Day surgery (SDC) | payer BC ==
[2023-06-13 12:27] VITALS: BMI 34.2
[2023-06-17] MEDS ORDERED: DEXAMETHASONE SOD PHOSPHATE 4 MG/ML 1 ML VIAL IV ONE (07:16)
[2023-06-17] MEDS ORDERED: ONDANSETRON 4 MG/2 ML VIAL IVP ONE (07:16)
[2023-06-17] MEDS ORDERED: LACTATED RINGERS 1,000 ML IV SCH (07:16)
[2023-06-17] MEDS ORDERED: HYDROmorphone 0.5 MG/0.5 ML SYRINGE IVP PRN (07:16)
[2023-06-17 07:36] VITALS: TEMP 97
[2023-06-17 07:39] LABS: Glucose,Whole Blood 111 mg/dL (70-110)
[2023-06-17] MEDS ORDERED: PROPOFOL 10 MG/ML 20 ML VIAL IV ONE (07:52)
--- NOTE | 2023-06-17 08:18 | P.PCN ---
Date of Procedure: 06/17/23 Procedure(s) Performed: BRIEF HISTORY: Patient is a 58-year-old pleasant white male scheduled for an elective colonoscopy as a part of screening for colon cancer. PROCEDURE PERFORMED: Colonoscopy with snare polypectomy. PREOPERATIVE DIAGNOSIS: Screening for colon cancer. IV sedation per Anesthesia. PROCEDURE: After informed consent was obtained, the patient, was brought into the endoscopy unit. IV sedation was administered by Anesthesia under continuous monitoring. Digital rectal examination was normal. Initially the Olympus CF-160 flexible video colonoscope was then inserted in the rectum, gradually advanced into the cecum without any difficulty. Careful examination was performed as the scope was gradually being withdrawn. Ileocecal valve and the appendiceal orifice were visualized and appeared normal. Prep was excellent. Mucosa of the cecum, appeared normal. In the ascending colon there was a 6 mm, 4 mm and 1 cm flat polyp removed by snare polypectomy. In the descending colon there was a 4 mm, 5 mm and 1 cm polyp removed by snare polypectomy. Mucosa of the sigmoid colon, and rectum appeared normal. Retroflexion was performed in the rectum and no lesions were seen. The patient tolerated the procedure well. IMPRESSION: 4 mm, 6 mm and 1 cm flat ascending colon polyp status post polypectomy 4 mm, 5 mm and 1 cm descending colon polyps status post snare polypectomy RECOMMENDATIONS: Findings of this examination were discussed with the patient as well as his family.. He was advised to follow with the biopsy results. If the biopsies adenoma he can have a repeat colonoscopy in 3 years.
[2023-06-17 08:28] VITALS: RESP 16
[2023-06-17 08:55] VITALS: BP 135/83; PULSE 63
== END 2023-06-17 09:10 | disposition home or self-care (01) ==
LOC: ORWHC2ENDO 07:02
PROVIDERS: ATTEND Internal Medicine Gastroenterology
DX: Z12.11 Encounter for screening for malignant neoplasm of colon (principal); D12.2 Benign neoplasm of ascending colon; D12.4 Benign neoplasm of descending colon; I10 Essential (primary) hypertension; E78.5 Hyperlipidemia, unspecified; G47.33 Obstructive sleep apnea (adult) (pediatric); K21.9 Gastro-esophageal reflux disease without esophagitis; F17.200 Nicotine dependence, unspecified, uncomplicated; Z79.899 Other long term (current) drug therapy; E11.9 Type 2 diabetes mellitus without complications; Z79.84 Long term (current) use of oral hypoglycemic drugs
CPT/HCPCS: 88305; 45385; J2704

== ENCOUNTER → 2023-07-16 | Outpatient (CLI) | payer BC ==
--- NOTE | 2023-07-16 17:25 | P.PN ---
Subjective DATE: 07/16/2023 FOLLOW UP VISIT. Patient with obstructive sleep apnea hypopnea syndrome return to sleep center for follow-up visit. Information from previous visit have been reviewed. Patient is using PAP equipment every night for the whole night, getting PAP supplies in time. The patient does not have significant problems with the mask, PAP unit and humidification. [place] sleepiness scale is 3. I checked information from PAP unit. PAP unit pressure 13 cm H2O. Usage is 100 % for more then 4 hours, average 9.2 hours per night. Leak is 5 l/m, which is in acceptable range. Apnea Hypopnea Index is 0.6, which is normal. MEDICATIONS:1. Eliquis 5 mg twice a day 2. Atorvastatin 20 mg once a day 3. Cymbalta 60 mg once a day 4. Lisinopril 40 mg once a day 5. Metformin 500 mg 2 tablets twice a day 6. Metoprolol 100 mg once a day 7. Amlodipine 10 mg once a day 8. Actos 30 mg once a day During physical exam: GENERAL: A pleasant patient without any distress. VITAL SIGNS: BP 124/77, HR 64, RR 16, weight 256.0, temperature 97.6, oxygen saturation at room air 98 % . HEENT: PERRLA, EOMI.low position of soft palate, Mallapati 4 . NECK: Supple. No JVD. LUNGS: Clear to percussion and to auscultation. Good air exchange. No wheezing or rhonchi. HEART: S1, S2 regular. ABDOMEN: Soft and nontender. Slightly obese EXTREMITIES: No clubbing or cyanosis. PORT CDL A DRIVER: Awake, alert, and oriented x3. No focal deficit. Impressions: 1. Obstructive sleep apnea-hypopnea syndrome. Patient demonstrated great compliance with treatment, benefiting from treatment. 2. History of atrial fibrillation. 3. Hypertension. 4. Diabetes mellitus. 5. Hyperlipidemia. 6. History of neck problems. Plan: 1. Continue using PAP equipment every night for the whole night. 2. To change air filter at least 1-2 times per month. 3. PAP unit should stay lower then position of the head. 4. Advised patient to remove all remaining water from humidifier canister daily and make it dry after each usage. Refill canister with fresh distilled water before each usage. 5. Sleep hygiene with regular time in bed for at least 8 hours. 6. Precautions related to driving. No driving if feel any sleepiness. 7. I will maintain prescription for PAP supplies including mask, tube, filters. 8. Follow up visit in 6 months or earlier if patient has any problems. 9. Watching and losing weight. Thank you very much for allowing me to participate in the management of your patient. Carloz Aquino MD, PhD, FAASM. Diplomat of [place] [employer] Medicine, Sleep Medicine Board by [place] [employer] High Lift Mule Operator of [facility] [place]
== END ==
LOC: 3 N SLEEP 16:35
PROVIDERS: ATTEND Internal Medicine
DX: G47.33 Obstructive sleep apnea (adult) (pediatric) (principal); I48.91 Unspecified atrial fibrillation; E11.9 Type 2 diabetes mellitus without complications; E78.5 Hyperlipidemia, unspecified; I10 Essential (primary) hypertension; Z79.01 Long term (current) use of anticoagulants; Z79.84 Long term (current) use of oral hypoglycemic drugs; Z79.899 Other long term (current) drug therapy; Z99.89 Dependence on other enabling machines and devices; Z87.39 Personal history of other diseases of the musculoskeletal system and connective tissue
CPT/HCPCS: 99212

== ENCOUNTER → 2023-09-26 | Outpatient (CLI) | payer BC ==
[2023-09-26 10:46] LABS: HCT 43.4 % (39.0-53.0); HGB 14.3 gm/dL (13.0-17.5); MCH 30.1 pg (25.0-35.0); MCV 91.1 fL (80.0-100.0); Mean Platelet Volume 6.9; Platelet Count 315 k/uL (150-450); RBC 4.77 m/uL (4.30-5.90); RDW 13.5 % (11.5-15.5); WBC 5.3 k/uL (3.8-10.6)
[2023-09-26 16:43] LABS: ALT 45 U/L (10-49); AST 25 U/L (14-35); Albumin 4.5 g/dL (3.8-4.9); Albumin/Globulin Ratio 2.05 Ratio (1.60-3.17); Alkaline Phosphatase 77 U/L (41-126); Calcium 9.7 mg/dL (8.7-10.3); Carbon Dioxide 27.7 mmol/L (21.6-31.8); Chloride 92 mmol/L (96-109); Chol/HDL Ratio 2.37 Ratio; Globulin 2.2 g/dL (1.6-3.3); Glucose 107 mg/dL (70-110); LDL Cholesterol,Calculated 62.6 mg/dL (0.0-131.0); Potassium 4.1 mmol/L (3.5-5.5); Prostate Specific Antigen 0.39 ng/mL (0.000-3.500); Sodium 132 mmol/L (135-145); Total Bilirubin 0.5 mg/dL (0.3-1.2); Total Protein 6.7 g/dL (6.2-8.2); VLDL Calculation 16.08 mg/dL (5.00-40.00)
[2023-09-26 17:08] LABS: Appearance,Urine Clear (Clear); Bilirubin,Urine Negative (Negative); Blood,Urine Negative (Negative); Color,Urine Yellow (Yellow); Ketones,Urine Negative (Negative); Nitrite,Urine Negative (Negative); Specific Gravity,Urine 1.031 (1.001-1.030)
[2023-09-26 19:54] LABS: Microalbumin Creatinine Ratio <10 mg/g Cr (0-30)
== END | disposition home or self-care (01) ==
LOC: LABWHC1 08:59
PROVIDERS: ATTEND Internal Medicine Cardiovascular Disease
DX: I10 Essential (primary) hypertension (principal); E11.9 Type 2 diabetes mellitus without complications; E78.2 Mixed hyperlipidemia; E78.5 Hyperlipidemia, unspecified; E55.9 Vitamin D deficiency, unspecified; N40.0 Benign prostatic hyperplasia without lower urinary tract symptoms
CPT/HCPCS: 36415; 80053; 80061; 81003; 82043; 82306; 82570; 83036; 84153; 85027

== ENCOUNTER → 2024-02-04 | Outpatient (CLI) | payer BC ==
--- NOTE | 2024-02-04 16:59 | P.PN ---
Subjective DATE: 02/04/2024 FOLLOW UP VISIT. Patient with obstructive sleep apnea hypopnea syndrome return to sleep center for follow-up visit. Information from previous visit have been reviewed. Patient is using PAP equipment every night for the whole night, getting PAP supplies in time. The patient does not have significant problems with the mask, PAP unit and humidification. [place] sleepiness scale is 3, which is normal. I checked information from PAP unit. PAP unit pressure 13 cm H2O. Usage is 100% for more then 4 hours, average 9.2 hours per night. Leak is 6 l/m, which is in acceptable range. Apnea Hypopnea Index is 0.4, which is normal. Motor life expectancy was exceeded, but CPAP unit is working well, no noise. MEDICATIONS:1. Atorvastatin 20 mg once a day 2. Eliquis 5 mg twice a day 3. Cymbalta 60 mg once a day 4. Lisinopril 40 mg once a day 5. Metformin 500 mg 2 tablets twice a day 6. Metoprolol 100 mg once a day 7. Amlodipine 10 mg once a day 8. Actos 30 mg once a day During physical exam: GENERAL: A pleasant patient without any distress. VITAL SIGNS: Please see below, weight 260 pounds, BMI 36.2. HEENT: PERRLA, EOMI.low position of soft palate, Mallapati 4 . NECK: Supple. No JVD. LUNGS: Clear to percussion and to auscultation. Good air exchange. No wheezing or rhonchi. HEART: S1, S2 regular. ABDOMEN: Soft and nontender. Slightly obese EXTREMITIES: No clubbing or cyanosis. HEALTH CARE SOCIAL WORKER: Awake, alert, and oriented x3. No focal deficit. Impressions: 1. Obstructive sleep apnea-hypopnea syndrome. Patient demonstrated great compliance with treatment, benefiting from treatment. 2. Mild obesity, BMI 36.2, patient increased weight on 4 pounds comparing with previous visit. 3. Hypertension. 4. History of atrial fibrillation. 5. Diabetes mellitus. 6. Hyperlipidemia. 7. History of neck problems. Plan: 1. Continue using PAP equipment every night for the whole night. 2. To change air filter at least 1-2 times per month. 3. PAP unit should stay lower then position of the head. 4. Advised patient to remove all remaining water from humidifier canister daily and make it dry after each usage. Refill canister with fresh distilled water before each usage. 5. Sleep hygiene with regular time in bed for at least 8 hours. 6. Precautions related to driving. No driving if feel any sleepiness. 7. I will maintain prescription for PAP supplies including mask, tube, filters. 8. Watching and losing weight. 9. Follow up visit in 6 months or earlier if patient has any problems. Thank you very much for allowing me to participate in the management of your patient. Carloz Aquino MD, PhD, FAASM. Diplomat of [place] Board [employer] Sleep Medicine, Sleep Medicine Board by [place] [employer] Nuclear Medical Technologist of [facility] [place] Objective - Vital Signs Vital signs: Vital Signs Temp 97.9 F 02/04/24 16:35 Pulse 68 02/04/24 16:35 Resp 16 02/04/24 16:35 BP 119/77 02/04/24 16:35 Pulse Ox 96 02/04/24 16:35 FiO2 Intake & Output 02/03/24 02/04/24 02/04/24 18:59 06:59 18:59 Weight 117.934 kg
[2024-02-04 17:04] VITALS: BP 119/77; PULSE 68; RESP 16; TEMP 97.9
== END ==
LOC: 3 N SLEEP 16:15
PROVIDERS: ATTEND Internal Medicine
DX: G47.33 Obstructive sleep apnea (adult) (pediatric) (principal); E66.9 Obesity, unspecified; I10 Essential (primary) hypertension; E11.9 Type 2 diabetes mellitus without complications; E78.5 Hyperlipidemia, unspecified; Z86.79 Personal history of other diseases of the circulatory system; Z87.39 Personal history of other diseases of the musculoskeletal system and connective tissue; Z99.89 Dependence on other enabling machines and devices; Z68.36 Body mass index [BMI] 36.0-36.9, adult; Z79.84 Long term (current) use of oral hypoglycemic drugs; Z79.899 Other long term (current) drug therapy; Z79.01 Long term (current) use of anticoagulants; Z79.85 Long-term (current) use of injectable non-insulin antidiabetic drugs
CPT/HCPCS: 99212

== ENCOUNTER → 2024-09-01 | Outpatient (CLI) | payer BC ==
[2024-09-01 16:53] VITALS: BP 118/73; PULSE 70; RESP 16; TEMP 98
--- NOTE | 2024-09-01 17:17 | P.PROGSL ---
Subjective DATE: 09/01/2024 FOLLOW UP VISIT. Patient with obstructive sleep apnea hypopnea syndrome return to sleep center for follow-up visit. Information from previous visit have been reviewed. Patient is using PAP equipment every night for the whole night, getting PAP supplies in time. The patient does not have significant problems with the mask, PAP unit and humidification. [place] sleepiness scale is 3, which is normal. I checked information from PAP unit. PAP unit pressure 13 cm H2O. Usage is 100% for more then 4 hours, average 9.3 hours per night. Leak is perfect 1.0 l/m. Apnea Hypopnea Index is 0.3, which is also perfect. MEDICATIONS Eliquis 5 mg twice a day, atorvastatin 20 mg once a day, chlorthalidone 25 mg once a day, Pepcid 10 mg once a day, fluticasone nasal spray, glimepiride 1 mg once a day, metoprolol 100 mg once a day, pioglitazone 30 mg once a day, amlodipine 10 mg once a day, lisinopril 40 mg once a day, metformin 1000 mg twice a day.. During physical exam: GENERAL: A pleasant patient without any distress. VITAL SIGNS: Please see below, weight is 246 lbs. HEENT: PERRLA, EOMI.low position of soft palate, Mallapati 4 . NECK: Supple. No JVD. LUNGS: Clear to percussion and to auscultation. Good air exchange. No wheezing or rhonchi. HEART: S1, S2 regular. ABDOMEN: Soft and nontender.[] EXTREMITIES: No clubbing or cyanosis. 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 No focal deficit. Impressions: 1. Obstructive sleep apnea-hypopnea syndrome. Patient demonstrated great compliance with treatment, benefiting from treatment. 2. Mild obesity, BMI 34.7. 3. Hypertension. 4. History of atrial fibrillation. 5. Diabetes mellitus. 6. Hyperlipidemia. 7. History of neck problems. Plan: 1. Continue using PAP equipment every night for the whole night. 2. Sleep hygiene with regular time in bed for at least 7.5-8 hours 3. PAP unit should stay lower then position of the head. 4. Advised patient to remove all remaining water from humidifier canister daily and make it dry after each usage. Refill canister with fresh distilled water before each usage. 5. Watching and losing weight. 6. Precautions related to driving. No driving if feel any sleepiness. 7. I will maintain prescription for PAP supplies including mask, tube, filters. 8. Follow up visit in 6 months or earlier if patient has any problems. Thank you very much for allowing me to participate in the management of your patient. Carloz Aquino MD, PhD, FAASM. Diplomat of [place], Sleep Medicine Board by [employer] Assistant Men[employer]S Lac[employer] Coach of [facility] [place] cc: Andrew Mayo DO Objective - Vital Signs Vital Signs: Vital Signs Temp 98 F 09/01/24 16:52 Pulse 70 09/01/24 16:52 Resp 16 09/01/24 16:52 BP 118/73 09/01/24 16:52 Pulse Ox 94 L 09/01/24 16:52 FiO2 Intake & Output 08/31/24 09/01/24 09/01/24 18:59 06:59 18:59 Weight 111.584 kg Home Medications: Home Medications Medication Instructions Recorded Confirmed Type Apixaban [Eliquis] 5 mg PO BID #60 tab 01/20/21 02/04/24 Rx Atorvastatin Calcium [Lipitor] 20 mg PO HS 01/20/21 02/04/24 History Cholecalciferol (Vitamin D3) 125 mcg PO HS 01/20/21 02/04/24 History [Vitamin D3 (5000 Iu)] DULoxetine HCL [Cymbalta] 60 mg PO HS 01/20/21 02/04/24 History Fluticasone Nasal [place] [Flonase 2 spr EA NOSTRIL DAILY 01/20/21 02/04/24 History Nasal [place]] Metoprolol Succinate [Toprol XL] 100 mg PO DAILY@1200 01/20/21 02/04/24 History lisinopriL 40 mg PO DAILY #90 tab 01/20/21 02/04/24 Rx metFORMIN HCL [Glucophage] 1,000 mg PO BID 01/20/21 02/04/24 History Acetaminophen [Tylenol Extra 1 tab PO BID PRN 06/13/23 02/04/24 History Strength] Ascorbic Acid [Vitamin C] 1,000 mg PO DAILY 06/13/23 02/04/24 History Chlorthalidone [Hygroton] 25 mg PO DAILY 06/13/23 02/04/24 History Empagliflozin [Jardiance] 25 mg PO DAILY 06/13/23 02/04/24 History Famotidine [Pepcid] 10 mg PO DAILY 06/13/23 02/04/24 History Glimepiride [Amaryl] 1 mg PO DAILY 06/13/23 02/04/24 History Pioglitazone [Actos] 30 mg PO DAILY 06/13/23 02/04/24 History amLODIPine [Norvasc] 10 mg PO DAILY 06/13/23 02/04/24 History
== END ==
LOC: 3 N SLEEP 15:56
PROVIDERS: ATTEND Internal Medicine
CPT/HCPCS: 99212

== ENCOUNTER → 2025-05-11 | Outpatient (CLI) | payer BC ==
[2025-05-11 11:53] VITALS: BP 112/70; PULSE 72; RESP 12; TEMP 98
--- NOTE | 2025-05-11 12:21 | P.PROGSL ---
Subjective DATE: 05/09/2025 FOLLOW UP VISIT. Patient with obstructive sleep apnea hypopnea syndrome return to sleep center for follow-up visit. Information from previous visit have been reviewed. Patient is using PAP equipment every night for the whole night, getting PAP supplies in time. CPAP unit is old and noisy. [place] sleepiness scale is 3, which is normal. I checked information from PAP unit. PAP unit pressure 13 cm H2O. Usage is 100% for more then 4 hours, average 10.1 hours per night. Leak is 2 l/m, which is in perfect range. Apnea Hypopnea Index is also perfect 0.5. MEDICATIONS have been reviewed, please see below. During physical exam: GENERAL: A pleasant patient without any distress. VITAL SIGNS: Please see below, weight is 255.6 lbs. HEENT: PERRLA, EOMI.low position of soft palate, Mallapati 4 . NECK: Supple. No JVD. LUNGS: Clear to percussion and to auscultation. Good air exchange. No wheezing or rhonchi. HEART: S1, S2 regular. ABDOMEN: Soft and nontender.[] EXTREMITIES: No clubbing or cyanosis. 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 No focal deficit. Impressions: 1. Obstructive sleep apnea-hypopnea syndrome. Patient demonstrated great compliance with treatment, benefiting from treatment. CPAP unit is old and noisy, motor life expectancy was exceeded. 2. Hypertension. 3. Mild obesity, BMI 35.5, patient increased weight on 9 pounds comparing with previous visit. 4. History of atrial fibrillation. 5. Diabetes mellitus. 6. History of neck problems. 7. Hyperlipidemia. Plan: 1. Continue using PAP equipment every night for the whole night. Prescription to replace CPAP unit. 2. Sleep hygiene with regular time in bed for at least 7.5-8 hours 3. PAP unit should stay lower then position of the head. 4. Advised patient to remove all remaining water from humidifier canister daily and make it dry after each usage. Refill canister with fresh distilled water before each usage. 5. Watching and losing weight. 6. Precautions related to driving. No driving if feel any sleepiness. 7. I will maintain prescription for PAP supplies including mask, tube, filters. 8. Follow up visit in 31 to 90 days after patient will get new CPAP unit. Thank you very much for allowing me to participate in the management of your patient. Carloz Aquino MD, PhD, FAASM. Diplomat of [employer], Sleep Medicine Board by [employer] Senior Business Broker of [facility] [place] Objective - Vital Signs Vital Signs: Vital Signs Temp 98 F 05/11/25 11:52 Pulse 72 05/11/25 11:52 Resp 12 05/11/25 11:52 BP 112/70 05/11/25 11:52 Pulse Ox 98 05/11/25 11:52 FiO2 Intake & Output 05/10/25 05/11/25 05/11/25 18:59 06:59 18:59 Weight 115.666 kg Home Medications: Home Medications Medication Instructions Recorded Confirmed Type Apixaban [Eliquis] 5 mg PO BID #60 tab 01/20/21 02/04/24 Rx Atorvastatin Calcium [Lipitor] 20 mg PO HS 01/20/21 02/04/24 History Cholecalciferol (Vitamin D3) 125 mcg PO HS 01/20/21 02/04/24 History [Vitamin D3 (5000 Iu)] DULoxetine HCL [Cymbalta] 60 mg PO HS 01/20/21 02/04/24 History Fluticasone Nasal [place] [Flonase 2 spr EA NOSTRIL DAILY 01/20/21 02/04/24 History Nasal [place]] Metoprolol Succinate [Toprol XL] 100 mg PO DAILY@1200 01/20/21 02/04/24 History lisinopriL 40 mg PO DAILY #90 tab 01/20/21 02/04/24 Rx metFORMIN HCL [Glucophage] 1,000 mg PO BID 01/20/21 02/04/24 History Acetaminophen [Tylenol Extra 1 tab PO BID PRN 06/13/23 02/04/24 History Strength] Ascorbic Acid [Vitamin C] 1,000 mg PO DAILY 06/13/23 02/04/24 History Chlorthalidone [Hygroton] 25 mg PO DAILY 06/13/23 02/04/24 History Empagliflozin [Jardiance] 25 mg PO DAILY 06/13/23 02/04/24 History Famotidine [Pepcid] 10 mg PO DAILY 06/13/23 02/04/24 History Glimepiride [Amaryl] 1 mg PO DAILY 06/13/23 02/04/24 History Pioglitazone [Actos] 30 mg PO DAILY 06/13/23 02/04/24 History amLODIPine [Norvasc] 10 mg PO DAILY 06/13/23 02/04/24 History
== END ==
LOC: 3 N SLEEP 11:39
PROVIDERS: ATTEND Internal Medicine
DX: G47.33 Obstructive sleep apnea (adult) (pediatric) (principal); I10 Essential (primary) hypertension; E66.9 Obesity, unspecified; Z68.35 Body mass index [BMI] 35.0-35.9, adult; E11.9 Type 2 diabetes mellitus without complications; E78.5 Hyperlipidemia, unspecified; Z86.79 Personal history of other diseases of the circulatory system; Z87.39 Personal history of other diseases of the musculoskeletal system and connective tissue; Z99.89 Dependence on other enabling machines and devices
CPT/HCPCS: 99212